=== PATIENT | male | born 1965 | race Caucasian/White ===

== ENCOUNTER 2023-11-24 06:49 | Inpatient (IN) | payer BC ==
[~2023-11-24] VITALS: Ht 172.7 cm; Wt 84.2 kg
[2023-11-24] MEDS ORDERED: ACETAMINOPHEN 500 MG TABLET ONE (07:31)
[2023-11-24] MEDS ORDERED: CELECOXIB 100 MG CAPSULE ONE (07:31)
[2023-11-24] MEDS ORDERED: oxyCODONE HCL 10 MG TAB.ER.12H PO ONE (07:33)
[2023-11-24] MEDS ORDERED: GABAPENTIN 300 MG CAPSULE ONE (07:33)
[2023-11-24] MEDS: CELECOXIB 100 MG CAPSULE PO ONE (07:57)
[2023-11-24] MEDS: ACETAMINOPHEN 325 MG TABLET PO ONE (07:57)
[2023-11-24] MEDS: SCOPOLAMINE HYDROBROMIDE 1 MG PATCH .72 H (TRANSDERM-SCOP) TD ONE (07:57)
[2023-11-24] MEDS: GABAPENTIN 100 MG CAPSULE PO ONE (07:57)
[2023-11-24] MEDS ORDERED: NALOXONE HCL 0.4 MG/ML AMP (NARCAN) IVP PRN ×3 (09:30)
[2023-11-24] MEDS ORDERED: DIPHENHYDRAMINE HCL 25 MG CAPSULE PO PRN (09:30)
[2023-11-24] MEDS ORDERED: BISACODYL 10 MG/SUPPOSITORY RC PRN (09:30)
[2023-11-24] MEDS ORDERED: LACTULOSE 20 GM/30 ML UDC PO PRN (09:30)
[2023-11-24] MEDS ORDERED: METOCLOPRAMIDE HCL 10 MG/2 ML VIAL IVP PRN ×2 (09:30→11:00)
[2023-11-24] MEDS ORDERED: DESFLURANE 15 MIN GAS INH ONE (09:40)
[2023-11-24] MEDS ORDERED: ONDANSETRON HCL 4 MG/2 ML VIAL ONE (09:40)
[2023-11-24] MEDS ORDERED: BUPIVACAINE /PF 0.25% 30 ML VIAL INJ ONE (09:40)
[2023-11-24] MEDS ORDERED: DEXAMETHASONE SOD PHOSPHATE 4 MG/ML VIAL ONE (09:40)
[2023-11-24] MEDS ORDERED: MIDAZOLAM HCL 2 MG/2 ML VIAL (VERSED) ONE (09:40)
[2023-11-24] MEDS ORDERED: PROPOFOL 200MG/ 20ML VIAL (DIPRIVAN) IV ONE (09:40)
[2023-11-24] MEDS ORDERED: WATER FOR IRRIGATION,STERILE 1,000 ML IRRIG.SOLN IR ONE (09:40)
[2023-11-24] MEDS ORDERED: LR 1,000 ML IV.SOLN IV ONE (09:40)
[2023-11-24] MEDS ORDERED: SUGAMMADEX SODIUM 200 MG/2 ML VIAL IV ONE (09:40)
[2023-11-24] MEDS ORDERED: NS IRRIG SOLN 1000 ML IR ONE (09:40)
[2023-11-24] MEDS ORDERED: TRANEXAMIC ACID 1,000 MG/10 ML VIAL ONE (09:40)
[2023-11-24] MEDS ORDERED: LIDOCAINE MPF 2% 20 MG/1 ML, 5 ML VIAL INH ONE (09:40)
[2023-11-24] MEDS ORDERED: ROCURONIUM BROMIDE 10 MG/ML (ZEMURON) ONE (09:40)
[2023-11-24] MEDS ORDERED: VANCOMYCIN HCL 1000 MG/VIAL IV ONE (09:40)
[2023-11-24] MEDS ORDERED: fentaNYL CITRATE/PF 100 MCG/2 ML AMP ONE (09:40)
[2023-11-24] MEDS ORDERED: ceFAZolin SODIUM 2 GM VIAL ONE (09:40)
[2023-11-24] MEDS: oxyCODONE HCL 10 MG TAB.ER.12H PO ONE (09:42)
[2023-11-24] MEDS ORDERED: hydrALAZINE HCL 20 MG/ML VIAL IVP PRN (11:00)
[2023-11-24] MEDS ORDERED: oxyCODONE HCL 5 MG TABLET PO PRN ×2 (11:00)
[2023-11-24] MEDS ORDERED: LORATADINE 10 MG TABLET PO PRN (11:00)
[2023-11-24] MEDS ORDERED: HYDROmorphone 1 MG/ML INJ. CARTRIDGE IVP PRN ×4 (11:00)
[2023-11-24] MEDS ORDERED: LR 1,000 ML IV SCH (11:00)
[2023-11-24] MEDS ORDERED: MEPERIDINE HCL/PF 25 MG/ML DISP.SYRIN IVP PRN (11:00)
[2023-11-24] MEDS ORDERED: ONDANSETRON HCL 4 MG/2 ML VIAL IVP PRN (11:45)
[2023-11-24] MEDS: HYDROmorphone 1 MG/ML INJ. CARTRIDGE IVP PRN (12:38)
[2023-11-24] MEDS ORDERED: HYDROmorphone 1 MG/ML INJ. CARTRIDGE ONE ×2 (12:38→14:29)
[2023-11-24] MEDS: TAMSULOSIN HCL 0.4 MG CAP PO ONE (12:48)
[2023-11-24] MEDS ORDERED: LABETALOL HCL 20 MG/4 ML CARTRIDGE IVP ONE (13:04)
[2023-11-24] MEDS: LABETALOL 100 MG/ 20ML VIAL IVP PRN (13:05)
[2023-11-24 13:28] VITALS: BP_SYST 133; PULSE 68; RESP 18; TEMP 98.2; O2SAT 100
[2023-11-24] MEDS ORDERED: KETOROLAC TROMETHAMINE 10 MG TABLET (TORADOL) PO SCH (14:00)
[2023-11-24] MEDS ORDERED: ACETAMINOPHEN 500 MG TABLET PO SCH (14:00)
[2023-11-24] MEDS: traMADol HCL HCL 50 MG TABLET (ULTRAM) PO PRN (14:51)
[2023-11-24] MEDS ORDERED: SENNOSIDES/DOCUSATE SODIUM 1 TAB TABLET(SENOKOT-S) PO SCH (21:00)
[2023-11-25] MEDS ORDERED: ceFAZolin SODIUM 2 GM in D5W 50 ML IV SCH
[2023-11-25] MEDS ORDERED: TAMSULOSIN HCL 0.4 MG CAP PO SCH (09:00)
[2023-11-25] MEDS ORDERED: ASPIRIN 81 MG TAB.CHEW PO SCH (09:00)
[2023-11-25] MEDS ORDERED: CELECOXIB 200 MG CAPSULE PO SCH (11:00)
[2023-11-27] MEDS ORDERED: SCOPOLAMINE HYDROBROMIDE 1 MG PATCH .72 H (TRANSDERM-SCOP) TD SCH (09:00)
== END 2023-11-24 16:30 | disposition home or self-care (01) | DRG 470 ==
LOC: SMU 06:49
PROVIDERS: ADMIT Student in an Organized Health Care Education/Training Program; ATTEND Student in an Organized Health Care Education/Training Program
PROC: 8E0Y0CZ Robotic Assisted Procedure of Lower Extremity, Open Approach (ICD-10-PCS; 2023-11-24)
PROC: 0SR904Z Replacement of Right Hip Joint with Ceramic on Polyethylene Synthetic Substitute, Open Approach (ICD-10-PCS; principal; 2023-11-24 09:43)
DX: M16.11 Unilateral primary osteoarthritis, right hip (principal); Z79.899 Other long term (current) drug therapy; Z88.8 Allergy status to other drugs, medicaments and biological substances
CPT/HCPCS: 72170-TC; 76000; 87081; 88304; 88311; 96379; 97110-GP; 97116-GP; 97530-GP; A4649; C1713; C1776; J0696; J1100; J1170; J2405; J2704; J3010; J3370; J3465; J3490; J7060; J7120